=== PATIENT | female | born 1940 | race Caucasian/White ===

== ENCOUNTER 2023-05-10 15:23 | Observation (INO) | payer MEDICARE, SELFPAY ==
[2023-05-10] VITALS (24 sets, daily range): BP systolic 145–187; BP diastolic 50–74; PULSE 60–83; RESP 15–29; TEMP 35.9–36.7; O2SAT 93–99; BMI 21.6
--- NOTE | 2023-05-10 15:45 | RT.EKG_ITS ---
APPROVED REPORT Exam: Resting ECG Reason for Exam: abd pain Patient Location: E HR:69 bpm ECG Measurements Heart Rate 69 AXIS NJ 167 P 30 QRSd 85 QRS 47 QT 389 T 97 QTc 418 Conclusion Sinus rhythm...normal P axis, V-rate 60- 99 Probable LVH with secondary repol abnrm...multiple LVH criteria sinus rhtyhm, normal axis, normal intervals, J poiint elevation inferior leads, st depressions latera l
--- NOTE | 2023-05-10 15:45 | DI.CT_ITS ---
Exam(s) CT ABDOMEN PELVIS W EXAM: CT ABDOMEN PELVIS W CLINICAL HISTORY: abd pain TECHNIQUE: Imaging Protocol: Axial computed tomography images with coronal and sagittal reformatted images were created and reviewed CONTRAST MATERIAL: Intravenous: Omnipaque 350 Contrast volume:80 mL Oral: No COMPARISON: No exams were available for comparison FINDINGS: ABDOMEN: Lung Bases: Mild atelectatic changes are seen in the lung bases, right greater than left. There may also be a tiny right pleural effusion. Liver: Normal density. No measurable mass. Portal, Superior Mesenteric, and Splenic Veins: Unremarkable. Gallbladder and Biliary Tract: No radiodense calculus or dilation. Pancreas: Normal density, no abnormal calcifications or inflammatory process. Spleen: Normal. Adrenals: No masses seen. Kidneys: Normal size, contour and axis. No radiodense stones or obstructive uropathy. There is a simp le cyst in the right kidney. No follow-up is recommended. There is a retroaortic left renal vein. Abdominal Aorta: Abdominal portion non-dilated. Atherosclerosis is present. Bowel: There is diverticulosis of the colon. There is mild stranding seen around a segment of descen ding colon. There is mild wall thickening in small bowel loops in the pelvis which may represent a en teritis. There is a tubular structure in the right lower quadrant measuring 1 cm in diameter with an echogenic appendicolith consistent with acute appendicitis. No abscess or free air. Mild fluid-fill ed loops of small bowel are seen which may represent an ileus versus obstruction. Peritoneal Cavity: Small amount of ascites. No free air. Lymph Nodes: Within normal limits. Bones: Within normal limits for the patient's age. Soft Tissues: Unremarkable. PELVIS: Bladder: There is diffuse thickening of the wall of the urinary bladder. This may be due to underdis tention. Infectious process cannot be excluded. Reproductive Organs: Unremarkable as visualized. Lymph Nodes: Within normal limits. Bones: Within normal limits for the patient's age. IMPRESSION: 1. Findings of acute appendicitis in the retrocecal region. No abscess or free air. There is an appen dicolith present. 2. Bilateral basilar infiltrates which may represent atelectasis. Pneumonia cannot be excluded. 3. Dilated loops of small bowel which may represent an ileus versus obstruction. Mild bowel wall thic kening in the small bowel which may represent enteritis. 4. Urinary bladder wall thickening. This may represent underdistention but infection/infarct or neopl asm cannot be excluded. RADIATION DOSE DELIVERED: 746.73mGy.cm Total DLP DATA REPOSITORY: All CT scans at this facility are submitted to the National Radiology Data Registry (NRDR) Dose Index Registry (DIR) with the [employer] (ACR). RADIATION OPTIMIZATION: All CT scans at this facility use at least one of these dose optimization te chniques: automated exposure control; mA and/or kV adjustment per patient size (includes targeted exa ms where dose is matched to clinical indication); or iterative reconstruction.
[2023-05-10] MEDS: MORPHine 10 MG/ML VIAL 2 MG IVP (16:30)
[2023-05-10] MEDS: Normal Saline 1,000 ML 1000 ML IV (16:30)
[2023-05-10 16:33] LABS: Lactate 1.3 mmol/L (0.6-1.4)
[2023-05-10 16:39] LABS: Abs Immature Grans 0.06 10^3/uL (0.0-0.06); Absolute Lymphocyte Count 0.48 10^3/uL (1.2-3.4); Basophils % 0.2; HCT 36.8 % (36.0-46.0); HGB 12.1 g/dL (11.2-15.7); Immature Grans % 0.4; Lymphocytes % 2.9; MCHC 32.9 % (32.0-36.0); MCV 85 fL (80-95); MPV 9.6 fL (8.0-11.0); Monocytes % 4.1; Neutrophils % 92.4; Platelet Count 368 10^3/uL (130-400); RBC 4.32 10^6/uL (3.93-5.22); RDW 13.9 % (11.7-14.6); RDW-SD 43.4 fL; WBC 16.45 10^3/uL (4.4-10.8)
[2023-05-10 16:42] LABS: Absolute Basophil Count 0.03 10^3/uL (0.0-0.2); Absolute Monocyte Count 0.67 10^3/uL (0.1-0.8)
[2023-05-10 16:52] LABS: ALT 17 U/L (14-59); AST 12 U/L (15-37); Albumin 3.8 g/dL (3.4-5.0); Alkaline Phosphatase 79 U/L (46-116); Anion Gap 8.4 mmol/L (3-11); BUN 18 mg/dL (7-18); CO2 27.6 mmol/L (21.0-32.0); Calcium 10.3 mg/dL (8.5-10.1); Chloride 98 mmol/L (98-107); Glucose 158 mg/dL (74-106); Lipase 14 U/L (16-77); Potassium 3.4 mmol/L (3.5-5.1); Sodium 134 mmol/L (136-145); Total Protein 7.4 g/dL (6.4-8.2); Troponin I < 50 ng/L (<or=60)
[2023-05-10] MEDS: Omnipaque 350 MG/ML 100 ML BTL 80 ML IJ (17:20)
[2023-05-10] MEDS: Normal Saline - Diluent 50 ML VIAL IJ (17:20)
[2023-05-10] MEDS: Normal Saline Flush 10 ML SYR IVP (17:29)
--- NOTE | 2023-05-10 18:07 | DI.VRAD_ITS ---
Addendum created by Margarita Milner MD on 05/10/2023 6:14:34 PM EDT: THIS REPORT CONTAINS FINDINGS THAT MAY BE CRITICAL TO PATIENT CARE. The findings were verbally communicated via telephone conference with Joyce Rubin at 6:13 PM EDT on 05/10/2023. The findings were acknowledged and understood. Initial report created on 05/10/2023 6:06:50 PM EDT: PROCEDURE INFORMATION: Exam: CT Abdomen And Pelvis With Contrast Exam date and time: 05/10/2023 5:33 PM Age: 83 years old Clinical indication: Abdominal pain; Generalized TECHNIQUE: Imaging protocol: Computed tomography of the abdomen and pelvis with contrast. Radiation optimization: All CT scans at this facility use at least one of these dose optimization techniques: automated exposure control; mA and/or kV adjustment per patient size (includes targeted exams where dose is matched to clinical indication); or iterative reconstruction. Contrast material: OMNI-PAQUE 350; Contrast volume: 80 ml; Contrast route: INTRAVENOUS (IV); COMPARISON: No relevant prior studies available. FINDINGS: Lungs: Opacities in both lower lobes may represent atelectasis or pneumonia.. Coronary arteries: Coronary artery calcifications may indicate coronary artery disease. Liver: Mild fluid adjacent to the liver Gallbladder and bile ducts: Intra hepatic ductal dilatation. The gallbladder is not identified Pancreas: Pancreatic atrophy. Minimal dilatation of the pancreatic duct Spleen: Normal. No splenomegaly. Adrenal glands: Normal. No mass. Kidneys and ureters: 12 mm simple cyst right kidney Stomach and bowel: Dilated loops of small bowel may represent developing obstruction. Bowel wall thickening of loops of small bowel in the pelvis may represent enteritis. Diverticulosis of the rectosigmoid.Diverticulosis of the rectosigmoid. No osiris diverticulitis.. Appendix: The retrocecal appendix demonstrates diffuse distention and periappendiceal inflammatory changes consistent with acute appendicitis. It contains appendicolith. Appendix is 11 mm in width. Series 4, image 57-61. Coronal series 19 -29. Axial series 7 image 561 -[id number]. Intraperitoneal space: Unremarkable. No free air. No significant fluid collection. Vasculature: Unremarkable. No abdominal aortic aneurysm. Lymph nodes: Unremarkable. No enlarged lymph nodes. Urinary bladder: Anterior bladder wall measures 9 mm. This is nonspecific and may represent inflammation or infection. Neoplastic process is included in the differential. Reproductive: Unremarkable as visualized. Bones/joints: Unremarkable. No acute fracture. Soft tissues: Unremarkable. IMPRESSION: 1. The retrocecal appendix demonstrates diffuse distention and periappendiceal inflammatory changes consistent with acute appendicitis. It contains appendicolith. Appendix is 11 mm in width. Series 4, image 57-61. Coronal series 19 -29. Axial series 7 image 561 -602. 2. Opacities in both lower lobes may represent atelectasis or pneumonia.. 3. Dilated loops of small bowel may represent developing obstruction. 4. Bowel wall thickening of loops of small bowel in the pelvis may represent enteritis. 5. Diverticulosis of the rectosigmoid.Diverticulosis of the rectosigmoid. No osiris diverticulitis.. 6. Anterior bladder wall measures 9 mm. This is nonspecific and may represent inflammation or infection. Neoplastic process is included in the differential. Dictated and Authenticated by: Margarita Milner MD. Ordering:MIGUELITO Cook MD
[2023-05-10] MEDS: PIPERACILLIN/TAZO 3.375 GM in Normal Saline 50 ML IVPB (18:30)
--- NOTE | 2023-05-10 19:12 | HPE_ITS ---
Date of service: 05/10/23 Time of Service: 19:12 Assessment and Plan Assessment and plan (1) Acute appendicitis: Status: Acute Assessment and plan: Anastasiya hernández 83-year-old female who comes in with abdominal pain since yesterday morning at 10:00. CT scan shows a dilated appendix with inflammatory changes and an appendicolith. No signs of rupture. The appendix is retrocecal. Her white count is elevated at just over 16,000. We discussed the pathophysiology of appendicitis as well as the treatment options of IV antibiotics with admission to the hospital for 1 or 2 days and then p.o. antib iotics. We discussed the recurrence rate with antibiotic treatment only. We discussed laparoscopic appendectomy and its complications. Patient would like to proceed with laparoscopic appendectomy. I discussed the procedure in detail as well as the risks, benefits and complications. At the end of our conversation the patient had a good understanding of the procedure and its complications. Risks, benefits and complications have been reviewed. Complications include but are not limited to bleeding, infection, injury to adjacent bowel, abscess formation, staple line leak, inability to do the procedure laparoscopically and adverse reaction to the medications. Questions were entertained and answered to their satisfaction and they wished to proceed. No guarantees were given or implied. Risk stratification is difficult with this patient as she has not seen a primary care physician in many years. She does seem to be quite active and is able to walk up stairs without any issues. Proceed with laparoscopic appendectomy possible open. History of Present Illness Consults Consult date: 05/10/23 Narrative: Anastasiya is a edgar 83-year-old female who comes to the emergency department today with abdominal pain. She tells me that the pain started yesterday around 10:00 in the morning. She made it through the night but the pain continued to get worse so finally decided to come into the emergency department. Her pain is localized mostly in the right lower quadrant. She has had no nausea or vomiting. She has had no diarrhea. The patient does not see a primary care physician. She does have a past medical history of psoriasis and cataract surgery when she was 8 years old. She follows mostly a alternative physician from [place] for her medical needs. She has no known drug allergies. She does not take any medications. She denies any chest pain or palpitations with activity. She denies shortness of breath with activity. She tells me they have 3 stories in their home with 16 steps each which she is able to go up without any difficulty. I reviewed her see his CT scan and labs. Her CT scan shows a dilated appendix with inflammatory changes and an appendicolith. It is retrocecal. There was also mention of bladder thickening and some small bowel loops that are dilated. This might be an evolving ileus due to her infection. There is no signs of rupture on the CT scan. The patient's last fluid intake and small amount of food was around 11:00 today. Review of Systems Constitutional Constitutional: Denies fever(s), Denies headache(s), Denies night sweats, Reports poor appetite and Denies weight loss Eyes Eyes: Denies change in vision ENT Ears, Nose, Mouth, and Throat: Denies dysphagia and Denies headache(s) Cardiovascular Cardiovascular: Denies chest pain, Denies chest pain at rest, Denies irregular heart rhythm, Denies palpitations, Denies dyspnea and Denies dyspnea on exertion Respiratory Respiratory: Denies cough, Denies dyspnea and Denies dyspnea on exertion Gastrointestinal Gastrointestinal: Reports system reviewed and no additional complaints, except as documented and Denies dysphagia Genitourinary Genitourinary: Denies hematuria, Denies difficulty voiding and Denies dysuria Musculoskeletal Musculoskeletal: Reports system reviewed and no additional complaints, except as documented Integumentary/Breasts Skin/Breast: Reports system reviewed and no additional complaints, except as documented Neurologic Neurologic: Reports system reviewed and no additional complaints, except as docu mented and Denies headache(s) Psychiatric Psychiatric: Reports system reviewed and no additional complaints, except as documented Endocrine Endocrine: Reports system reviewed and no additional complaints, except as documented and Denies palpitations Hematologic/Lymphatic Hematologic/Lymphatic: Reports system reviewed and no additional complaints, except as documented PFSH All Active Problems (Updated 05/10/23 @ 19:16 by Linda Sy MD) Acute appendicitis (Acute) Psoriasis (Chronic) Surgical History (Updated 05/10/23 @ 19:16 by Linda Sy MD) S/P cataract surgery at age 8 Social History (Updated 05/10/23 @ 19:17 by Linda Sy MD) Smoking/Tobacco Use Status: Never Smoking risk assessment performed?: Yes Alcohol Intake: current Alcohol Intake frequency: a few times a month Alcohol type: wine Drug use: Never Substance use type: does not use Household members: spouse Housing: house Do you feel safe at home: Yes Do you feel safe in your relationship?: Yes Meds Allergies and Home Medications Allergies Allergy/AdvReac Type Severity Reaction Status Date / Time No Known Allergies Allergy Unverified 05/10/23 15:21 Exam Const General: cooperative, comfortable and no acute distress Nutritional Appearance: average body habitus Orientation: alert and oriented x3 HENMT Head: normocephalic and atraumatic Resp Effort & Inspection: normal respiratory effort Auscultation: clear to auscultation bilaterally Cardio Rate: regular rate Rhythm: regular rhythm GI Inspection: normal to inspection Palpation: soft, no hepatosplenomegaly and tender in the RLQ (voluntary guarding. No rebound) Auscultation: normal bowel sounds Results Imaging Abdomen CT scan report/results: report reviewed and image reviewed CT scan - pelvis: report reviewed and image reviewed Labs 05/10/23 16:25 05/10/23 16:25 Labs: Laboratory Results - last 24 hr 05/10/23 05/10/23 05/10/23 16:25 16:25 16:25 WBC 16.45 H RBC 4.32 Hgb 12.1 Hct 36.8 MCV 85 MCH 28.0 MCHC 32.9 RDW 13.9 Plt Count 368 MPV 9.6 Immature Gran % 0.4 Neutrophils % 92.4 Lymphocytes % 2.9 Monocytes % 4.1 Eosinophils % 0.0 Basophils % 0.2 Nucleated RBC % 0.0 Absolute Neutrophils 15.20 H Absolute Lymphocytes 0.48 L Absolute Monocytes 0.67 Absolute Eosinophils 0.00 Absolute Basophils 0.03 VBG Lactate 1.3 Sodium 134 L Potassium 3.4 L Chloride 98 Carbon Dioxide 27.6 Anion Gap 8.4 BUN 18 Creatinine 1.0 Est GFR (CKD-EPI 2020) 56.60 Glucose 158 H Calcium 10.3 H Total Bilirubin 1.0 AST 12 L ALT 17 Alkaline Phosphatase 79 Troponin I < 50 Total Protein 7.4 Albumin 3.8 Lipase 14 L 05/10/23 18:52 WBC RBC Hgb Hct MCV MCH MCHC RDW Plt Count MPV Immature Gran % Neutrophils % Lymphocytes % Monocytes % Eosinophils % Basophils % Nucleated RBC % Absolute Neutrophils Absolute Lymphocytes Absolute Monocytes Absolute Eosinophils Absolute Basophils VBG Lactate Sodium Potassium Chloride Carbon Dioxide Anion Gap BUN Creatinine Est GFR (CKD-EPI 2020) Glucose Calcium Total Bilirubin AST ALT Alkaline Phosphatase Troponin I Cancelled Total Protein Albumin Lipase Last Vital Signs Temp 97 F L 05/10/23 15:19 Pulse 60 05/10/23 17:01 Resp 15 05/10/23 18:50 BP 150/50 H 05/10/23 17:01 Pulse Ox 97 05/10/23 18:50 Time Spent Time spent with Patient: 40-54 minutes Time was spent: preparing to see the patient(eg.review tests), obtaining and/or reviewing separately otained hiistory, indepentently interpreting results, counseling the patient and care coordination
--- NOTE | 2023-05-10 19:24 | ROE_ITS ---
Date of service: 05/10/23 Time of Service: 21:03 Operative Note Operative Note DATE OF PROCEDURE: 05/10/23 PRE-OP DIAGNOSIS: acute appendicitis POST-OP DIAGNOSIS: other (supporative appendicitis) PROCEDURE: Laparoscopic Appendectomy SURGEON: Linda Sy ANESTHESIA TYPE: Local By Surgeon and General LMA/ETT Refer to Anesthesia Record PATHOLOGY: other (appendix) COMPLICATIONS: None Patient was transported to: PACU Patient's condition: stable Indications: Anastasiya is a pleasant 83-year-old female who comes in with abdominal pain since yesterday morning. CT scan is positive for appendicitis. Her white count is elevated. Laparoscopic appendectomy versus antibiotic treatment alone was discussed with the patient. She would like to proceed with laparoscopic append ectomy. The procedure was discussed with her in detail as well as the complications and risks. Patient had a good understanding of both at the end of our conversation. Findings: Supporative appendicitis Dilated loops of ileum Procedure Description: After informed consent was obtained the patient was taken to the operating room placed in the supine position, SCDs were applied as well as monitors. A timeout was done. The patient was then placed under general anesthesia and intubated without any difficulty. At this point the abdomen was prepped and draped in a sterile surgical fashion with chlorhexidine. A second timeout was done and the patient's name, date of , operation to be performed, DVT prophylaxis, antibiotic given were reviewed, and fire risk was assessed. 0.25% Bupivocaine was injected into the dermis just below the umbilicus. A small 5 mm incision was made with an 11 blade. The subcutaneous tissue was dissected with a hemostat down to the fascia. The skin was grasped with penetrating towel clamps on either side of the incision and then using a Visiport a 5 mm port was placed under direct visualization into the abdomen. The abdomen was insufflated. The chavez was placed and the small bowel was inspected under the port. No injury was noted. Local anesthetic was then injected just above the pubic symphysis just to the right of midline. A small 5 mm incision was made with an 15 blade and another 5 mm port was placed under direct visualization into the abdomen. The local anesthetic was then injected in the left lower quadrant area and a 12 mm incision was made with an 15 blade. A 12 mm port was then placed under direct visualization. The patient's bed was then turned to the left and head down allowing me to sweep of the small bowel out of the right lower quadrant. The cecum was gently grasped and the appendix was identified. The appendix looked inflammed and thickened at the tip. No purulent fluid was noted. The appendix was grasped at the neck and pulled up slightly allowing me to visualize the junction with the cecum. Using the laparoscopic LigaSure the mesoappendix was slowly transected. Using a laparoscopic straight stapler the appendix was then transected at the junction with the cecum. The appendix was placed into an Endo Catch bag and removed through the 12 mm port site. The port was placed back into the abdomen and the staple line was identified. No bleeding was noted. The transected mesentery was identified and no bleeding was noted. The abdomen was irrigated with 1 L of fluid. At the end the suctioned fluid was clear. The 2 5 mm ports were then removed under direct visualization and no bleeding was noted from the fascia. The insufflation was stopped and the 12 mm port was removed. The 12 mm port site fascia was closed with a 0 Vicryl [id number] suture. The skin was then closed with 4-0 MOnocryl. The skin was cleaned and dried and dermabond was applied. The patient was woken up, extubated and taken back to recovery room in stable condition. There were no immediate complications. Sponge, instrument and needle counts were correct at the end of the case x2.
[2023-05-10] MEDS: Lactated Ringers 1,000 ML 1000 ML IV (19:32)
[2023-05-10 19:33] LABS: Bilirubin Negative (Negative); Blood Small (Negative); Clarity Clear (Clear); Glucose Negative (Negative); Ketones Negative (Negative); Leukocyte Esterase Negative (Negative); Nitrite Negative (Negative); Specific Gravity <= 1.005 (1.005-1.025); Urobilinogen 0.2 mg/dL (Up to 0.2)
[2023-05-10 19:41] LABS: Bacteria Rare HPF (Negative); Casts Negative LPF (Negative); Crystals Negative HPF (Negative); Epithelial Cells Rare HPF (Negative); Mucus Negative (Negative); WBC 0-2 HPF (0-5)
[2023-05-10 19:42] LABS: C & S Indicated? No
--- NOTE | 2023-05-10 20:02 | ANES.PREOP_ITS ---
General Info Date of Service Date Performed: 05/10/23 Height: 5 ft 5 in Weight: 58.967 kg Body Mass Index (BMI): 21.6 Surgical Procedure: Operation Date: 05/10/23 20:00 Proposed Procedure Side Surgeon p Appendectomy Laparoscopic Linda Sy MD Pre-Op Diagnosis Post-Op Diagnosis ACUTE APPENDICITIS Meds Allergies and Home Medications Allergies Allergy/AdvReac Type Severity Reaction Status Date / Time No Known Allergies Allergy Unverified 05/10/23 15:21 Current Visit Medications: Current Medications Generic Name Dose Route Start Last Admin Trade Name Freq PRN Reason Stop Dose Admin Iohexol 80 ml 05/10/23 17:30 05/10/23 17:20 Omnipaque 350 Mg/Ml 100 Ml Btl IJ 06/09/23 23:59 80 ml DIRECTED HAL Administration Sodium Chloride 50 ml 05/10/23 17:30 05/10/23 17:20 Normal Saline - Diluent 50 Ml Vial IJ 50 ml .FOR DI USE HAL Administration Sodium Chloride 0 ml 05/10/23 17:29 05/10/23 17:29 Normal Saline Flush 10 Ml Syr IVP 10 ml PRN PRN Administration PFSH Active Problems Active Problems: Problem Status Onset Code Acute appendicitis K35.80 Psoriasis L40.9 Surgical History Surgical History (Updated 05/10/23 @ 19:16 by Linda Sy MD) S/P cataract surgery at age 8 Tobacco Smoking/Tobacco Use Status: Never Alcohol Alcohol Intake: current Alcohol intake frequency: a few times a month Alcohol type: wine Substance Use Substance use: Never Substance use type: does not use Vital Signs and Lab Results Vital Signs Most Recent Vital Signs in EMR: Most Recent Vital Signs Temp Pulse Resp BP Pulse Ox 36.1 C L 60 15 150/50 H 97 05/10/23 15:19 05/10/23 17:01 05/10/23 18:50 05/10/23 17:01 05/10/23 18:50 Lab Results 05/10/23 16:25 05/10/23 16:25 Blood Type / Crossmatch: No Data to Display Complete Blood Count: White Blood Count 16.45 10^3/uL (4.4-10.8) H 05/10/23 16:25 Red Blood Count 4.32 10^6/uL (3.93-5.22) 05/10/23 16:25 Hemoglobin 12.1 g/dL (11.2-15.7) 05/10/23 16:25 Hematocrit 36.8 % (36.0-46.0) 05/10/23 16:25 Platelet Count 368 10^3/uL (130-400) 05/10/23 16:25 Venous Blood Lactate 1.3 mmol/L (0.6-1.4) 05/10/23 16:25 Complete Metabolic Panel: Sodium 134 mmol/L (136-145) L 05/10/23 16:25 Potassium 3.4 mmol/L (3.5-5.1) L 05/10/23 16:25 Chloride 98 mmol/L (98-107) 05/10/23 16:25 Carbon Dioxide 27.6 mmol/L (21.0-32.0) 05/10/23 16:25 BUN 18 mg/dL (7-18) 05/10/23 16:25 Creatinine 1.0 mg/dL (0.55-1.02) 05/10/23 16:25 Est GFR (CKD-EPI 2020) 56.60 (mL/min/1.73m2) 05/10/23 16:25 Calcium 10.3 mg/dL (8.5-10.1) H 05/10/23 16:25 Albumin 3.8 g/dL (3.4-5.0) 05/10/23 16:25 Glucose 158 mg/dL (74-106) H 05/10/23 16:25 Liver Function Panel: Alanine Aminotransferase (ALT/SGPT) 17 U/L (14-59) 05/10/23 16: 25 Aspartate Amino Transf (AST/SGOT) 12 U/L (15-37) L 05/10/23 16: 25 Coagulation Panel: No Data to Display Cardiac Panel: Troponin I < 50 ng/L (<or=60) 05/10/23 Arterial Blood Gas: No Data to Display Venous Blood Gas: No Data to Display Pancreas Panel: Lipase 14 U/L (16-77) L 05/10/23 16:25 Thyroid Panel: No Data to Display Infectious Disease: No Data to Display Blood Cultures: No Data to Display Toxicology Panel: No Data to Display Anesthesia Assessment and Plan Anesthesia History Personal History: No History of Anesthesia Complications Family History: No Family History of Anesthesia Complications Exercise Tolerance Exercise Tolerance: Metabolic Equivalents>4 Pertinent Negatives Pertinent Negatives: No Symptoms of GERD Cardiac & Pulmonary Exam Cardiac Exam: Normal S1/S2 Heart Sounds Pulmonary Exam: Clear Bilateral Breath Sounds Implantable Cardiac Device Does patient have a Pacemaker or an ICD?: No Airway Exam Known Difficult Airway: No Mallampati Class: 2 Mouth Opening: Normal (> 3cm) Thyromental Distance: Greater than 3 cm Neck Range of Motion: Full ROM Neck Circumference: Normal Teeth Condition: Normal Dentition ASA Classification ASA Score: ASA 2 Emergency Case?: Yes NPO Status NPO Status: Full Stomach Anesthesia Plan Resuscitation Status: Full Code Anesthesia Technique: General Anesthesia Airway Planned: Endotracheal Tube Monitors Used: Standard Monitors
--- NOTE | 2023-05-10 20:37 | APP_PTH ---
PATIENT: Anastasiya Aparicio LOC: U#:[id number] AGE/SX: 83/F ROOM: 206 RE05/10/[address]: Linda Sy MD : [id number] BED: A DIS: 05/11/2023 SPEC #: [id number] RECD: 05/11/23 12:48 STATUS: SOUT REQ #: [id number] ESA: 05/10/23 20:[address]: Linda Sy DEPT: Surgical Specimen RECD BY: Joyce Ruiz ENTERED: 05/11/23 12:49 SP TYPE: Appendix OTHR DR: Chapis Mcclure Tissues: 1 - APPENDIX NOT INCIDENTAL Procedures: GROSS AND MICRO LEVEL 3 Comments: [id number]
[2023-05-10] MEDS: Bupivacaine 0.25% Pres-Free 30 ML VIAL (20:44)
--- NOTE | 2023-05-10 21:34 | W.ANESPOSTOP ---
Postoperative Evaluation Date, Time and Location Date Performed: 05/10/23 Time Performed: 21:34 Patient Location: PACU Vital Signs Most Recent Imported Vital Signs: Most Recent Vital Signs Temp Pulse Resp BP Pulse Ox 36.5 C 73 23 174/54 H 93 05/10/23 21:30 05/10/23 21:30 05/10/23 21:30 05/10/23 21:30 05/10/23 21:30 Pain Score Most Recent Pain Score: Most Recent Pain Score Pain Level 0 05/10/23 21:30 Assessment Mental Status: Arousable with meaningful communication Airway and Respiratory Function: Patent airway with normal (patient baseline) respiratory exam Cardiovascular Function: Hemodynamically Stable Hydration Status: Adequately Hydrated Nausea & Vomiting: No Nausea or Vomiting Pain: Pt. Denies Any Pain Peripheral Nerve Block: Patient did not receive a nerve block
--- NOTE | 2023-05-10 22:34 | W.ED.GENAD ---
Discharge Plan Disposition Patient Disposition: Admit to [facility] Condition: Stable Discharge Details Clinical Impression: Acute appendicitis Admit Date/Time: 05/10/23 21:08 Admit Provider: Linda Sy Attending Provider: Linda Sy Primary Care Provider: Chapis Mcclure ED Provider: Joyce Rubin Discharge Data Discharge Date/Time-TO BE ENTERED AT DEPARTURE: 05/10/23 19:58 Medical Decision Making 83-year-old female presenting with generalized sharp abdominal pain since yesterday with nausea and vomiting CT abdomen pelvis was ordered secondary to peritonitis on exam Leukocytosis, 16,000, lactate within normal limits, urinalysis within normal limits CT abdomen pelvis shows evidence of acute appendicitis, atelectasis in lung aaron, small area possible mass retrocecal, patient will need follow-up Case discussed with Dr. Sy, will take patient to the operating room Zosyn initiated Patient received 1 L of NS, 1 L of LR HPI General Date/Time Provider Initiated Documentation: 05/10/23 15:52. HPI Narrative: This 83-year-old female presents with generalized sharp abdominal pain since yesterday with nausea. Denies fever or chills. States the pain is worse with ambulation. Denies any nausea or vomiting. Related Data Allergies Allergy/AdvReac Type Severity Reaction Status Date / Time No Known Allergies Allergy Unverified 05/10/23 15:21 General Stated Complaint: Abd Prob KAMINI: 3 PFSH All Active Problems (Updated 05/10/23 @ 23:00 by DUC Chin) Acute appendicitis (Acute) Psoriasis (Chronic) Surgical History (Updated 05/10/23 @ 19:16 by Linda Sy MD) S/P cataract surgery at age 8 Social History (Updated 05/10/23 @ 19:17 by Linda Sy MD) Smoking/Tobacco Use Status: Never Smoking risk assessment performed?: Yes Alcohol Intake: current Alcohol Intake frequency: a few times a month Alcohol type: wine Drug use: Never Substance use type: does not use Household members: spouse Housing: house Do you feel safe at home: Yes Do you feel safe in your relationship?: Yes Course Vital Signs Vital signs: Vital Signs Temperature 36.1 C L 05/10/23 15:19 Pulse 71 05/10/23 15:19 Respiratory Rate 18 05/10/23 15:19 Blood Pressure 145/60 H 05/10/23 15:19 Pulse Oximetry 99 05/10/23 15:19 Temperature 35.9 C L 05/10/23 22:03 Temperature Source Oral 05/10/23 15:19 Pulse 74 05/10/23 22:03 Pulse Rhythm Regular 05/10/23 22:03 Pulse 75 05/10/23 18:50 Respiratory Rate 18 05/10/23 22:03 Respiratory Effort Normal, Non-Labored 05/10/23 22:03 Respiratory Depth Normal 05/10/23 22:03 Respiratory Pattern Normal 05/10/23 22:03 Blood Pressure 158/74 H 05/10/23 22:03 Blood Pressure Mean 74 05/10/23 17:01 Blood Pressure Position Sitting 05/10/23 15:19 Pulse Oximetry 94 05/10/23 22:03 Respiratory End-tidal CO2 33 05/10/23 21:15 Oxygen Delivery Method Room Air 05/10/23 22:03 Oxygen Flow Rate 0 05/10/23 22:03 Pain Level 0 05/10/23 22:03 Lab/Test Results Lab/Test Results: Laboratory Tests Range/Units 05/10/23 05/10/23 05/10/23 16:25 16:25 16:25 WBC (4.4-10.8) 10^3/uL 16.45 H RBC (3.93-5.22) 10^6/uL 4.32 Hgb (11.2-15.7) g/dL 12.1 Hct (36.0-46.0) % 36.8 MCV (80-95) fL 85 MCH (27.0-33.0) pg 28.0 MCHC (32.0-36.0) % 32.9 RDW (11.7-14.6) % 13.9 Plt Count (130-400) 10^3/uL 368 MPV (8.0-11.0) fL 9.6 Immature Gran % 0.4 Neutrophils % 92.4 Lymphocytes % 2.9 Monocytes % 4.1 Eosinophils % 0.0 Basophils % 0.2 Nucleated RBC % (0.0-0.3) % 0.0 Absolute Neutrophils (1.2-6.7) 10^3/uL 15.20 H Absolute Lymphocytes (1.2-3.4) 10^3/uL 0.48 L Absolute Monocytes (0.1-0.8) 10^3/uL 0.67 Absolute Eosinophils (0.0-0.7) 10^3/uL 0.00 Absolute Basophils (0.0-0.2) 10^3/uL 0.03 VBG Lactate (0.6-1.4) mmol/L 1.3 Sodium (136-145) mmol/L 134 L Potassium (3.5-5.1) mmol/L 3.4 L Chloride (98-107) mmol/L 98 Carbon Dioxide (21.0-32.0) mmol/L 27.6 Anion Gap (3-11) mmol/L 8.4 BUN (7-18) mg/dL 18 Creatinine (0.55-1.02) mg/dL 1.0 Est GFR (CKD-EPI 2020) (mL/min/1.73m2) 56.60 Glucose (74-106) mg/dL 158 H Calcium (8.5-10.1) mg/dL 10.3 H Total Bilirubin (0.2-1.0) mg/dL 1.0 AST (15-37) U/L 12 L ALT (14-59) U/L 17 Alkaline Phosphatase (46-116) U/L 79 Troponin I (<or=60) ng/L < 50 Total Protein (6.4-8.2) g/dL 7.4 Albumin (3.4-5.0) g/dL 3.8 Lipase (16-77) U/L 14 L Urine Color (Yellow) Urine Clarity (Clear) Urine pH (5-8) Ur Specific [place] (1.005-1.025) Urine Protein (Negative) mg/dL Urine Ketones (Negative) mg/dL Urine Blood (Negative) Urine Nitrite (Negative) Urine Bilirubin (Negative) Urine Urobilinogen (Up to 0.2) mg/dL Ur Leukocyte Esterase (Negative) Urine RBC (0-2) HPF Urine WBC (0-5) HPF Ur Epithelial Cells (Negative) HPF Urine Crystals (Negative) HPF Urine Bacteria (Negative) HPF Urine Casts (Negative) LPF Urine Mucus (Negative) Ur Culture Indicated? Urine Glucose (Negative) mg/dL Range/Units 05/10/23 05/10/23 18:52 19:27 WBC (4.4-10.8) 10^3/uL RBC (3.93-5.22) 10^6/uL Hgb (11.2-15.7) g/dL Hct (36.0-46.0) % MCV (80-95) fL MCH (27.0-33.0) pg MCHC (32.0-36.0) % RDW (11.7-14.6) % Plt Count (130-400) 10^3/uL MPV (8.0-11.0) fL Immature Gran % Neutrophils % Lymphocytes % Monocytes % Eosinophils % Basophils % Nucleated RBC % (0.0-0.3) % Absolute Neutrophils (1.2-6.7) 10^3/uL Absolute Lymphocytes (1.2-3.4) 10^3/uL Absolute Monocytes (0.1-0.8) 10^3/uL Absolute Eosinophils (0.0-0.7) 10^3/uL Absolute Basophils (0.0-0.2) 10^3/uL VBG Lactate (0.6-1.4) mmol/L Sodium (136-145) mmol/L Potassium (3.5-5.1) mmol/L Chloride (98-107) mmol/L Carbon Dioxide (21.0-32.0) mmol/L Anion Gap (3-11) mmol/L BUN (7-18) mg/dL Creatinine (0.55-1.02) mg/dL Est GFR (CKD-EPI 2020) (mL/min/1.73m2) Glucose (74-106) mg/dL Calcium (8.5-10.1) mg/dL Total Bilirubin (0.2-1.0) mg/dL AST (15-37) U/L ALT (14-59) U/L Alkaline Phosphatase (46-116) U/L Troponin I (<or=60) ng/L Cancelled Total Protein (6.4-8.2) g/dL Albumin (3.4-5.0) g/dL Lipase (16-77) U/L Urine Color (Yellow) Yellow Urine Clarity (Clear) Clear Urine pH (5-8) 6.0 Ur Specific [place] (1.005-1.025) <= 1.005 Urine Protein (Negative) mg/dL Negative Urine Ketones (Negative) mg/dL Negative Urine Blood (Negative) Small H Urine Nitrite (Negative) Negative Urine Bilirubin (Negative) Negative Urine Urobilinogen (Up to 0.2) mg/dL 0.2 Ur Leukocyte Esterase (Negative) Negative Urine RBC (0-2) HPF 3-5 H Urine WBC (0-5) HPF 0-2 Ur Epithelial Cells (Negative) HPF Rare Urine Crystals (Negative) HPF Negative Urine Bacteria (Negative) HPF Rare Urine Casts (Negative) LPF Negative Urine Mucus (Negative) Negative Ur Culture Indicated? No Urine Glucose (Negative) mg/dL Negative
[2023-05-10] MEDS: Pantoprazole 40 MG VIAL IVP (22:55)
[2023-05-10] MEDS: Lactated Ringers 1,000 ML 30 ML IV (22:56)
[2023-05-11] MEDS: PIPERACILLIN/TAZO 3.375 GM in Normal Saline 50 ML IVPB ×3 (00:41→12:15)
[2023-05-11 06:47] LABS: Abs Immature Grans 0.09 10^3/uL (0.0-0.06); Absolute Basophil Count 0.03 10^3/uL (0.0-0.2); Absolute Monocyte Count 0.48 10^3/uL (0.1-0.8); Absolute Neutrophil Count 12.66 10^3/uL (1.2-6.7); Basophils % 0.2; HCT 33.2 % (36.0-46.0); HGB 11.1 g/dL (11.2-15.7); Immature Grans % 0.6; Lymphocytes % 4.3; MCH 28.8 pg (27.0-33.0); MCHC 33.4 % (32.0-36.0); MCV 86 fL (80-95); MPV 10.2 fL (8.0-11.0); Monocytes % 3.5; Neutrophils % 91.4; Platelet Count 311 10^3/uL (130-400); RBC 3.85 10^6/uL (3.93-5.22); RDW 14.5 % (11.7-14.6); RDW-SD 46.4 fL; WBC 13.85 10^3/uL (4.4-10.8)
[2023-05-11 07:12] VITALS: BP 145/66; PULSE 65; RESP 16; TEMP 36.5; O2SAT 98
--- NOTE | 2023-05-11 10:14 | INITIAL_ITS ---
Date of service: 05/11/23 Time of Service: 10:14 Care Management Initial Assmt Initial Assessment REASON FOR HOSPITALIZATION:: Acute appendicitis PREVIOUS FUNCTIONAL STATUS/SOCIAL/FAMILY SUPPORTS:: Anastasiya lives in [place] with her , Kevin. They live in a three story home with 16 steps between each floor. 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 She is independent at baseline. CURRENT FUNCTIONAL STATUS:: Anastasiya was sitting up in her chair when CM met with her; her was visiting. Anastasiya reported that she is feeling really good today, and is not sure if she will have pain after the anesthesia wears off, but she does not have any pain currently. She reported that she is very happy with the care she is receiving at [facility]. She had questions about restrictions post surgically, and stated that she would discuss that with the provider. She will likely be discharged today, and is agreeable to this plan. CM will continue to follow. ADVANCE DIRECTIVES:: Not on file; CM will offer forms. Has patient been provided with info about the portal/API?: Yes Did the patient sign up for the portal?: No CODE STATUS:: Full Code INSURANCE COVERAGE / FINANCIAL ISSUES:: MCR CURRENT HOME/COMMUNITY SERVICES/EQUIPMENT:: No current services or equipment PRIMARY CARE PHYSICIAN:: Dr. Ramsay; [facility] POTENTIAL DISCHARGE NEEDS:: Evaluations for further needs, follow up appointments. PATIENT/FAMILY EDUCATION NEEDS:: Review discharge instructions and limitations, discussion of self care needs including ask me three. ANTICIPATED BARRIERS TO DISCHARGE:: None identified. TRANSPORTATION:: Via private vehicle by her . PLAN:: Anticipate Anastasiya will return home once she is medically cleared. She will be driven home via private vehicle by her . She will follow up with her PCP and discharge plan of care. CM will continue to follow. PFSH All Active Problems (Updated 05/10/23 @ 23:00 by DUC Chin) Acute appendicitis (Acute) Psoriasis (Chronic) Surgical History (Updated 05/11/23 @ 15:30 by Linda Sy MD) S/P cataract surgery at age 8 S/P laparoscopic appendectomy (~05/10/23) Social History (Updated 05/10/23 @ 19:17 by Linda Sy MD) Smoking/Tobacco Use Status: Never Smoking risk assessment performed?: Yes Alcohol Intake: current Alcohol Intake frequency: a few times a month Alcohol type: wine Drug use: Never Substance use type: does not use Household members: spouse Housing: house Do you feel safe at home: Yes Do you feel safe in your relationship?: Yes
--- NOTE | 2023-05-11 13:26 | NUR.NOTE ---
Accessed chart to determine orders for EKG and to determine whether or not one needs to be cancelled. Nursing Note:
--- NOTE | 2023-05-11 15:24 | W.PM.PROGNOT ---
Date of Service Date of service: 05/11/23 Time of Service: 15:24 Assessment and Plan Assessment and plan (1) Acute appendicitis: Status: Acute Assessment and plan: Anastasiya is POD #1 from Laparoscopic Appendectomy. She is doing very well. WBC count is down. She has been afebrile. She has tolerated a clear liquid diet. She is passing flatus. She would like to go home. She has a pretty strict diet. We reviewed the procedure and my findings. I think its reasonable for her to go home with her . Return precautions reviewed. Subjective Subjective Interval history since last seen: Anastasiya is doing well. She has tolerated her clear liquid diet. She is passing flatus. She has no pain. Exam Const General: cooperative, comfortable and no acute distress Orientation: alert and oriented x3 HENMT Head: normocephalic and atraumatic Resp Effort & Inspection: normal respiratory effort Auscultation: clear to auscultation bilaterally Cardio Rate: regular rate Rhythm: regular rhythm GI Inspection: incision (c/d/i) Palpation: soft, no hepatosplenomegaly and nontender Auscultation: normoactive bowel sounds Objective Last Vital Signs Temp 97.7 F 05/11/23 07:12 Pulse 65 05/11/23 07:12 Resp 16 05/11/23 07:12 BP 145/66 H 05/11/23 07:12 Pulse Ox 98 05/11/23 07:12 Laboratory Results - last 24 hr 05/10/23 05/10/23 05/10/23 16:25 16:25 16:25 WBC 16.45 H RBC 4.32 Hgb 12.1 Hct 36.8 MCV 85 MCH 28.0 MCHC 32.9 RDW 13.9 Plt Count 368 MPV 9.6 Immature Gran % 0.4 Neutrophils % 92.4 Lymphocytes % 2.9 Monocytes % 4.1 Eosinophils % 0.0 Basophils % 0.2 Nucleated RBC % 0.0 Absolute Neutrophils 15.20 H Absolute Lymphocytes 0.48 L Absolute Monocytes 0.67 Absolute Eosinophils 0.00 Absolute Basophils 0.03 VBG Lactate 1.3 Sodium 134 L Potassium 3.4 L Chloride 98 Carbon Dioxide 27.6 Anion Gap 8.4 BUN 18 Creatinine 1.0 Est GFR (CKD-EPI 2020) 56.60 Glucose 158 H Calcium 10.3 H Total Bilirubin 1.0 AST 12 L ALT 17 Alkaline Phosphatase 79 Troponin I < 50 Total Protein 7.4 Albumin 3.8 Lipase 14 L Urine Color Urine Clarity Urine pH Ur Specific [place] Urine Protein Urine Ketones Urine Blood Urine Nitrite Urine Bilirubin Urine Urobilinogen Ur Leukocyte Esterase Urine RBC Urine WBC Ur Epithelial Cells Urine Crystals Urine Bacteria Urine Casts Urine Mucus Ur Culture Indicated? Urine Glucose 05/10/23 05/10/23 05/11/23 18:52 19:27 06:05 WBC 13.85 H RBC 3.85 L Hgb 11.1 L Hct 33.2 L MCV 86 MCH 28.8 MCHC 33.4 RDW 14.5 Plt Count 311 MPV 10.2 Immature Gran % 0.6 Neutrophils % 91.4 Lymphocytes % 4.3 Monocytes % 3.5 Eosinophils % 0.0 Basophils % 0.2 Nucleated RBC % 0.0 Absolute Neutrophils 12.66 H Absolute Lymphocytes 0.60 L Absolute Monocytes 0.48 Absolute Eosinophils 0.00 Absolute Basophils 0.03 VBG Lactate Sodium Potassium Chloride Carbon Dioxide Anion Gap BUN Creatinine Est GFR (CKD-EPI 2020) Glucose Calcium Total Bilirubin AST ALT Alkaline Phosphatase Troponin I Cancelled Total Protein Albumin Lipase Urine Color Yellow Urine Clarity Clear Urine pH 6.0 Ur Specific [place] <= 1.005 Urine Protein Negative Urine Ketones Negative Urine Blood Small H Urine Nitrite Negative Urine Bilirubin Negative Urine Urobilinogen 0.2 Ur Leukocyte Esterase Negative Urine RBC 3-5 H Urine WBC 0-2 Ur Epithelial Cells Rare Urine Crystals Negative Urine Bacteria Rare Urine Casts Negative Urine Mucus Negative Ur Culture Indicated? No Urine Glucose Negative Time Spent with Patient Time Spent with Patient: <25 minutes Time was spent: preparing to see the patient(eg.review tests), indepentently interpreting results and counseling the patient
[2023-05-11 15:29] VITALS: BP 150/67; PULSE 71; RESP 16; TEMP 37.1; O2SAT 96
--- NOTE | 2023-05-11 15:29 | DSE_ITS ---
Date of service: 05/11/23 Time of Service: 15:30 DS: Diagnosis Discharge Diagnosis (1) Acute appendicitis: Status: Acute Discharge Plan Disposition Patient Disposition: Home Condition: Stable Discharge Details Reason For Visit: Appendicitis Admit Date/Time: 05/10/23 21:08 Admit Provider: Linda Sy Attending Provider: Linda Sy Primary Care Provider: Chapis Mcclure Hospital Course Hospital Course: Anastasiya was admitted after undergoing Laparoscopic Appendectomy. POD#1 she was tolerating a clear liquid diet. She had no pain, nausea or vomiting. She was passing flatus and had been afebrile. We discussed her surgery and findings. We reviewed her activity level, medications and return precautions. Discharge Instructions Instructions: Laparoscopic Appendectomy (DC) Additional Instructions: Activity at Home after surgery: 1. Make sure you walk outside at least 4 times per day 2. You should be able to climb a flight of stairs 3. No driving while in pain or taking pain medications 4. No strenuous activity or heavy lifting ( no more then 10 lb) for 2 weeks (laparoscopic surgery) Diet, Nutrition, & wound healin. Avoid alcohol until after you are recovered from your surgery 2. Make sure to eat plenty of lean protein (meat, fish, eggs, cottage cheese, beans) 3. Eat a variety of fruits and vegetables. Eat plenty of high fiber foods to avoid constipation. 4. Drink plenty of liquids to stay hydrated and avoid constipation Pain Medications: 1. Tylenol 650mg every 6 hours as needed and Ibuprofen 600 mg every 6 hours as needed. You may alternate between the 2 medications every 3 hours 2. If a narcotic has been prescribed take as directed only for breakthrough pain For Constipation: 1. Take Milk of Magnesia or MiraLax as needed for constipation Other: 1. You may shower daily. Do not scrub the incisions 2. Do not soak the incisions for 1 week 3. You may alternate ice and heat as needed for pain and swelling Wound Care: 1. Keep the incisions clean and dry Please call our office if you develop: 1. Fevers >101.5 2. Nausea or Vomiting 3. Worsening pain 4. Redness and thick discharge from the wounds If after hours please call the Hospital at and ask to speak to the on-call surgeon Dr. Sy's Cell . If I do not answer I may not have signal. In that case please call the Hospital and ask them to page the human services professional Surgeon. Referrals: Linda Sy MD [ [facility] STAFF PHYSICIAN] - 05/20/23 10:00 am Activity:: as above Equipment/Supplies:: No Equipment Needed Diet:: As Tolerated Discharge Orders Discharge Orders: Discharge Order (Routine); Ordered 05/11/23 Ordered By: Linda Sy DS: Summary Time Spent with Patient providing and/or coordinating discharge services: Greater than 30 minutes Status at Discharge Functional status at discharge: independent ambulation Overall status at discharge: patient is back to baseline Mental Status: mental status grossly normal Speech and Movement: speech and movement normal Mood: congruent mood Affect: normal affect Exam Psych Mental Status: mental status grossly normal Speech and Movement: speech and movement normal Mood: congruent mood Affect: normal affect DS: Data Vitals/I&O Vitals and I&O: Vital Signs Temperature 97.7 F 05/11/23 07:12 Temperature Source Tympanic 05/11/23 07:12 Pulse 65 05/11/23 07:12 Pulse Rhythm Regular 05/11/23 08:00 Pulse 75 05/10/23 18:50 Respiratory Rate 16 05/11/23 07:12 Respiratory Effort Normal, Non-Labored 05/11/23 08:00 Respiratory Depth Normal 05/11/23 08:00 Respiratory Pattern Normal 05/11/23 08:00 Blood Pressure 145/66 H 05/11/23 07:12 Blood Pressure Mean 74 05/10/23 17:01 Blood Pressure Position Sitting 05/10/23 15:19 Pulse Oximetry 98 05/11/23 07:12 Respiratory End-tidal CO2 33 05/10/23 21:15 Oxygen Delivery Method Room Air 05/11/23 07:12 Oxygen Flow Rate 0 05/11/23 07:12 Pain Level 0 05/11/23 08:00 Intake & Output 05/10/23 05/11/23 05/11/23 23:59 11:59 23:59 Intake Total 800 / 800 336 / 386 50 / 386 Output Total 250 / 250 Balance 800 / 800 86 / 136 50 / 136 Weight 130 lb 9.615 oz Intake: IV 800 / 800 336 / 386 50 / 386 Output: Urine 250 / 250 Other: Urine Color Pale Urine Appearance Clear Emesis Description None Voiding Methods Toilet Data Completed and Pending Labs on day of discharge: Labs from last 24 hours 05/11/23 05/10/23 05/10/23 06:05 19:27 18:52 WBC 13.85 H RBC 3.85 L Hgb 11.1 L Hct 33.2 L MCV 86 MCH 28.8 MCHC 33.4 RDW 14.5 Plt Count 311 MPV 10.2 Immature Gran % 0.6 Neutrophils % 91.4 Lymphocytes % 4.3 Monocytes % 3.5 Eosinophils % 0.0 Basophils % 0.2 Nucleated RBC % 0.0 Absolute Neutrophils 12.66 H Absolute Lymphocytes 0.60 L Absolute Monocytes 0.48 Absolute Eosinophils 0.00 Absolute Basophils 0.03 VBG Lactate Sodium Potassium Chloride Carbon Dioxide Anion Gap BUN Creatinine Est GFR (CKD-EPI 2020) Glucose Calcium Total Bilirubin AST ALT Alkaline Phosphatase Troponin I Cancelled Total Protein Albumin Lipase Urine Color Yellow Urine Clarity Clear Urine pH 6.0 Ur Specific [place] <= 1.005 Urine Protein Negative Urine Ketones Negative Urine Blood Small H Urine Nitrite Negative Urine Bilirubin Negative Urine Urobilinogen 0.2 Ur Leukocyte Esterase Negative Urine RBC 3-5 H Urine WBC 0-2 Ur Epithelial Cells Rare Urine Crystals Negative Urine Bacteria Rare Urine Casts Negative Urine Mucus Negative Ur Culture Indicated? No Urine Glucose Negative 05/10/23 05/10/23 05/10/23 16:25 16:25 16:25 WBC 16.45 H RBC 4.32 Hgb 12.1 Hct 36.8 MCV 85 MCH 28.0 MCHC 32.9 RDW 13.9 Plt Count 368 MPV 9.6 Immature Gran % 0.4 Neutrophils % 92.4 Lymphocytes % 2.9 Monocytes % 4.1 Eosinophils % 0.0 Basophils % 0.2 Nucleated RBC % 0.0 Absolute Neutrophils 15.20 H Absolute Lymphocytes 0.48 L Absolute Monocytes 0.67 Absolute Eosinophils 0.00 Absolute Basophils 0.03 VBG Lactate 1.3 Sodium 134 L Potassium 3.4 L Chloride 98 Carbon Dioxide 27.6 Anion Gap 8.4 BUN 18 Creatinine 1.0 Est GFR (CKD-EPI 2020) 56.60 Glucose 158 H Calcium 10.3 H Total Bilirubin 1.0 AST 12 L ALT 17 Alkaline Phosphatase 79 Troponin I < 50 Total Protein 7.4 Albumin 3.8 Lipase 14 L Urine Color Urine Clarity Urine pH Ur Specific [place] Urine Protein Urine Ketones Urine Blood Urine Nitrite Urine Bilirubin Urine Urobilinogen Ur Leukocyte Esterase Urine RBC Urine WBC Ur Epithelial Cells Urine Crystals Urine Bacteria Urine Casts Urine Mucus Ur Culture Indicated? Urine Glucose PFSH All Active Problems (Updated 05/10/23 @ 23:00 by DUC Chin) Acute appendicitis (Acute) Psoriasis (Chronic) Surgical History (Updated 05/11/23 @ 15:30 by Linda Sy MD) S/P cataract surgery at age 8 S/P laparoscopic appendectomy (~05/10/23) Social History (Updated 05/10/23 @ 19:17 by Linda Sy MD) Smoking/Tobacco Use Status: Never Smoking risk assessment performed?: Yes Alcohol Intake: current Alcohol Intake frequency: a few times a month Alcohol type: wine Drug use: Never Substance use type: does not use Household members: spouse Housing: house Do you feel safe at home: Yes Do you feel safe in your relationship?: Yes Time Spent with Patient Time Spent with Patient: <45 minutes Time was spent: preparing to see the patient(eg.review tests), indepentently interpreting results, counseling the patient and care coordination
--- NOTE | 2023-05-11 17:34 | PDOC.CMDIS ---
Date of service: 05/11/23 Time of Service: 17:34 LACE Index Scoring Tool Questions: Length of Stay (in days): 1 Was the patient admitted via the E.D.?: Yes E.D. Visits: 0 Answers: Total Score: 4 Risk of Readmission: Low Risk Care Management Discharge Plan Reason for Hospitalization: Acute appendicitis Discharge Plan: Anastasiya returned home today with no new services. Her drove her home via private vehicle. She will follow up with her surgeon, her PCP, and her discharge plan of care. She is happy to be going home. Patient/Family Education Needs: Review discharge instructions and limitations, discussion of self care needs including ask me three.
== END 2023-05-11 17:10 | disposition home or self-care (01) ==
LOC: ER 19:06 → DSU 19:55 → MS 21:43
PROVIDERS: Admitting Provider Surgery; Emergency Provider Physician Assistant; Visit Provider Surgery
PROC: 0DTJ4ZZ Resection of Appendix, Percutaneous Endoscopic Approach (ICD-10-PCS; CPT 44970; principal; 2023-05-10 20:00)
DX: K35.80 Unspecified acute appendicitis (principal); L40.9 Psoriasis, unspecified
CPT/HCPCS: 44970; 36415; 80053; 83690; 93005; 96361; 96365; 96375; 99223; 99285; 74177; 81003; 81015; 83605; 84484; 85025; 88304; 93010; G0378; J0131; J1100; J1885; J2270; J2405; J2543; J2704; J3010; J3490

== ENCOUNTER → 2023-05-20 09:47 | Outpatient (BNVA) | payer MEDICARE, SELFPAY | PROVIDERS: Visit Provider Surgery | DX: Z48.815 Encounter for surgical aftercare following surgery on the digestive system (principal) ==

== ENCOUNTER → 2024-01-17 13:17 | Outpatient (BNVA) | payer MEDICARE, SELFPAY | PROVIDERS: PCP Family Medicine; Referring Provider Family Medicine; Visit Provider Podiatrist | DX: B35.1 Tinea unguium (principal); L60.3 Nail dystrophy; L40.9 Psoriasis, unspecified; B44.9 Aspergillosis, unspecified | CPT/HCPCS: 99213 ==

== ENCOUNTER → 2024-02-15 13:05 | Outpatient (BNVA) | payer MEDICARE, SELFPAY | PROVIDERS: PCP Family Medicine; Referring Provider Family Medicine; Visit Provider Podiatrist | DX: B35.1 Tinea unguium (principal); L60.3 Nail dystrophy; L40.9 Psoriasis, unspecified | CPT/HCPCS: 99213 ==

== ENCOUNTER → 2024-05-16 13:15 | Outpatient (BNVA) | payer MEDICARE, SELFPAY | PROVIDERS: PCP Family Medicine; Referring Provider Family Medicine; Visit Provider Podiatrist | DX: L60.3 Nail dystrophy (principal); B35.1 Tinea unguium; L40.8 Other psoriasis | CPT/HCPCS: 99213 ==

== ENCOUNTER 2025-02-05 10:58 | Outpatient (REF) | payer MEDICARE, SELFPAY ==
[2025-02-05 21:47] LABS: Abs Immature Grans 0.02 10^3/uL (0.0-0.06); Absolute Basophil Count 0.05 10^3/uL (0.0-0.2); Absolute Monocyte Count 0.66 10^3/uL (0.1-0.8); Absolute Neutrophil Count 4.55 10^3/uL (1.2-6.7); Basophils % 0.7 %; Eosinophils % 1.5 %; HCT 29.2 % (36.0-46.0); HGB 9.2 g/dL (11.2-15.7); Immature Grans % 0.3 %; Lymphocytes % 21.8 %; MCH 25.4 pg (27.0-33.0); MCHC 31.5 % (32.0-36.0); MCV 81 fL (80-95); MPV 10.3 fL (8.0-11.0); Monocytes % 9.6 %; Neutrophils % 66.1 %; Platelet Count 514 10^3/uL (130-400); RBC 3.62 10^6/uL (3.93-5.22); RDW 14.7 % (11.7-14.6); RDW-SD 43.5 fL; WBC 6.88 10^3/uL (4.4-10.8)
[2025-02-05 22:10] LABS: ALT 31 U/L (14-59); AST 32 U/L (15-37); Alkaline Phosphatase 98 U/L (46-116); Anion Gap 9.3 mmol/L (3-11); BUN 34 mg/dL (7-18); Bilirubin, Total 0.3 mg/dL (0.2-1.0); CO2 25.7 mmol/L (21.0-32.0); CREATININE 1.2 mg/dL (0.55-1.02); Calcium 10.4 mg/dL (8.5-10.1); Calculated LDL 119 mg/dL (<100); Chloride 103 mmol/L (98-107); Cholesterol 231 mg/dL (<200); Estimated GFR 45.19 (mL/min/1.73m2); Glucose 95 mg/dL (74-106); HDL Cholesterol 103 mg/dL (>or=50); Potassium 4.1 mmol/L (3.5-5.1); Sodium 138 mmol/L (136-145); Total Protein 7.7 g/dL (6.4-8.2); Triglyceride 47 mg/dL (<150)
== END 2025-02-05 10:59 | disposition home or self-care (01) ==
LOC: NCHCN 10:58
PROVIDERS: PCP Family Medicine; Visit Provider Family Medicine
DX: I10 Essential (primary) hypertension (principal); R53.83 Other fatigue
CPT/HCPCS: 80053; 80061; 85025

== ENCOUNTER 2025-07-16 15:01 | Outpatient (REF) | payer MEDICARE, SELFPAY ==
[2025-07-16 20:43] LABS: HCT 27.4 % (36.0-46.0); HGB 8.3 g/dL (11.2-15.7); MCH 23.2 pg (27.0-33.0); MCHC 30.3 % (32.0-36.0); MCV 77 fL (80-95); MPV 10.7 fL (8.0-11.0); Platelet Count 467 10^3/uL (130-400); RBC 3.57 10^6/uL (3.93-5.22); RDW 15.8 % (11.7-14.6); RDW-SD 43.8 fL; WBC 7.83 10^3/uL (4.4-10.8)
== END 2025-07-16 15:02 | disposition home or self-care (01) ==
LOC: NCHCN 15:01
PROVIDERS: PCP Family Medicine; Visit Provider Family Medicine
DX: D64.9 Anemia, unspecified (principal)
CPT/HCPCS: 85027